=== PATIENT | female | born 1940 | race Caucasian/White ===

== ENCOUNTER 2017-10-24 12:50 | Emergency (ER) | payer OTHER, MEDICAID ==
[~2017-10-24] VITALS: Ht 162.6 cm; Wt 76.0 kg
[~2017-10-24 12:50] MED LIST: ALPR0.25 PO; ATOR20TA42 PO; CARD180C5 PO; CHOL1CAP6 PO; LEVE500 PO; LOPE2TAB3 PO; RIVA20 PO; Z.0.WALKERFRONT
[2017-10-24 13:03] VITALS: BP 141/76; PULSE 97; RESP 20; TEMP 97.8; O2SAT 98
[2017-10-24] MEDS ORDERED: ALEV220T14 PO (13:30)
[2017-10-24] MEDS ORDERED: LEVE500T8 PO (13:30)
[2017-10-24] MEDS ORDERED: MECL-62 PO (13:30)
[2017-10-24] MEDS ORDERED: ATOR40TA16 PO (13:30)
[2017-10-24] MEDS ORDERED: AMLO10TA2 PO (13:30)
[2017-10-24] MEDS ORDERED: XARE20TA PO (13:30)
[2017-10-24] MEDS ORDERED: LORA0.5T PO (13:30)
[2017-10-24] MEDS ORDERED: SUCR1TAB PO (13:30)
--- NOTE | 2017-10-24 14:13 | PD ---
HPI Chief Complaint: Fall Time Seen by Provider: 13:52 Travel History International Travel<30 days: No Contact w/Intl Traveler<30days: No Traveled to known affect area: No History of Present Illness HPI 77-year-old female presents emergency department for evaluation left wrist pain. Patient has history of vertigo. She felt dizzy and went to grab for something when she missed it. She ended up pulling her wrist. She reports left wrist pain, urine nature. It is exacerbated with movement. She did not fall or hit her head. She cannot lose consciousness. No other symptoms to report. PFSH Past Medical History Atrial Fibrillation: Yes Anxiety: Yes Depression: Yes Cancer: No Cardiovascular Problems: Yes High Cholesterol: Yes Chest Pain: Yes Coronary Artery Disease: Yes Diabetes: No Diminished Hearing: No Deep Vein Thrombosis: Yes Endocrine: No Gastrointestinal Disorders: Yes (RECTAL PROLAPSE,ACID REFLUX, GI BLEED, ESOPHAGEAL STRICTURE/DILATION) GERD: Yes Genitourinary: Yes (HX OF UTI) Headaches: Yes Hepatitis: No Hiatal Hernia: No Hypertension: Yes Immune Disorder: No Musculoskeletal: Yes (ARTHRITIS, BACK PROBLEMS) Neurologic: No Psychiatric: Yes (CLAUSTROPHOBIC) Reproductive: No Respiratory: Yes (GETS SOB EASILY, HX OF BRONCHITIS) Myocardial Infarction: Yes Thyroid Disease: No Menopausal: Yes : 8 Para: 7 Miscarriage: 1 Past Surgical History Abdominal Surgery: Yes (CHOLECYSTECTOMY) AICD: No Cholecystectomy: Yes Eye Surgery: Yes (BILL CATARACT SURGERY 2012) Gynecologic Surgery: Yes (HYSTERECTOMY, OOPHORECTOMY) Hysterectomy: Yes Joint Replacement: No Pacemaker: No Other Surgery: Yes Social History Alcohol Use: No Tobacco Use: No Substance Use: No Allergies-Medications (Allergen,Severity, Reaction): Coded Allergies: iodine (Unverified Allergy, Severe, 04/29/17) THROAT CLOSED, COULDN'T BREATHE AFTER IODINATED CONTRAST MEDIA INJECTED potassium iodide (Unverified Allergy, Severe, 04/29/17) THROAT CLOSED, COULDN'T BREATHE AFTER IODINATED CONTRAST MEDIA INJECTED povidone-iodine (Unverified Allergy, Severe, 04/29/17) THROAT CLOSED, COULDN'T BREATHE AFTER IODINATED CONTRAST MEDIA INJECTED sodium iodide (Unverified Allergy, Severe, 04/29/17) THROAT CLOSED, COULDN'T BREATHE AFTER IODINATED CONTRAST MEDIA INJECTED sodium iodide (Unverified Allergy, Severe, 04/29/17) THROAT CLOSED, COULDN'T BREATHE AFTER IODINATED CONTRAST MEDIA INJECTED penicillin G (Unverified Allergy, Intermediate, Hives, 04/29/17) ITCHING, RASH morphine (Unverified Adverse Reaction, Intermediate, Restlessness, 04/29/17 ) Reported Meds & Prescriptions Reported Meds & Active Scripts Active Startex (Hydrocodone-Acetaminophen) 5 Mg-325 Mg Tab 1 Tab PO Q6H PRN Reported Lorazepam 0.5 Mg Tab 0.5 Mg PO Q12HR PRN Levetiracetam 500 Mg Tab 500 Mg PO BID Amlodipine (Amlodipine Besylate) 10 Mg Tab 10 Mg PO DAILY Xarelto (Rivaroxaban) 20 Mg Tab 20 Mg PO DAILY Aleve Arthritis (Naproxen Sodium) 220 Mg Tab 220 Mg PO BID Atorvastatin (Atorvastatin Calcium) 40 Mg Tab 40 Mg PO HS Sucralfate 1 Gram Tab 1 Gm PO TID on empty stomach Meclizine (Meclizine HCl) 25 Mg Tab 50 Mg PO BID PRN Review of Systems Except as stated in HPI: all other systems reviewed are Neg Physical Exam Narrative GENERAL: Well-nourished, well-developed female patient, primarily Vietnamese- speaking but in no acute distress. SKIN: Focused skin assessment warm/dry. HEAD: Normocephalic. EYES: No scleral icterus. No injection or drainage. NECK: Supple, trachea midline. No JVD or lymphadenopathy. CARDIOVASCULAR: Regular rate and rhythm without murmurs, gallops, or rubs. RESPIRATORY: Breath sounds equal bilaterally. No accessory muscle use. EXTREMITY: There is swelling and tenderness of the left distal forearm and wrist. There is no obvious deformity. The skin is intact. Flexion and extension of the fingers is normal. The fingers are warm and well perfused. Sensation to light touch is intact in the hand. BACK: Nontender without obvious deformity. No CVA tenderness. Data Data Last Documented VS Vital Signs Date Time Temp Pulse Resp B/P (MAP) Pulse Ox O2 Delivery O2 Flow Rate FiO2 10/24/17 15:40 75 20 148/84 (105) 99 10/24/17 13:03 97.8 Orders Orders Wrist, Complete ([id number]) (10/24/17 ) Ibuprofen (Motrin) (10/24/17 14:15) Splint Or Brace Apply/Monitor (10/24/17 15:04) Ed Discharge Order (10/24/17 15:04) Cockup Hand Splint (10/24/17 ) MDM Medical Decision Making Medical Screen Exam Complete: Yes Emergency Medical Condition: Yes Medical Record Reviewed: Yes Differential Diagnosis Fracture versus sprain versus dislocation versus contusion Narrative Course 77-year-old female presents to emergency department for evaluation left wrist pain. X-ray imaging confirms no acute bony normality. Patient is placed in a Velcro wrist splint. She is encouraged follow-up with primary care provider and return immediately with any acute worsening symptoms. Diagnosis Primary Impression: Wrist sprain Qualified Codes: S63.502A - Unspecified sprain of left wrist, initial encounter Referrals: Orthopedist Primary Care Physician Patient Instructions: General Instructions, Wrist Sprain (ED) Additional Instructions: Ice and elevate to reduce pain and swelling Brace for support Follow-up with primary care provider Return immediately with any acute worsening symptoms Med/Other Pt SpecificInfo: Prescription(s) given Scripts Hydrocodone-Acetaminophen (Startex) 5 Mg-325 Mg Tab 1 TAB PO Q6H Y for PAIN GREATER THAN 6, #12 TAB 0 Refills Prov: Sera Avery 10/24/17 Disposition: 01 DISCHARGE HOME Condition: Stable Sera Avery Oct 24, 2017 14:13
[2017-10-24] MEDS ORDERED: IBUPROFEN 600 MG TAB PO ONE (14:15)
--- NOTE | 2017-10-24 15:00 | RADRPT ---
EXAM DATE/TIME: 10/24/2017 14:27 [facility] COMPARISON: No previous studies available for comparison. INDICATIONS : Posterior side left wrist pain, after fall MEDICAL HISTORY : Hypertension. Hypercholesterolemia. Gastroesophageal reflux disease. Hearing problems. Confusion. DOROTHY B. Coronary artery disease. Chest pain. DVT. Bronchitis. Esophageal stricture. Rectal prolapse. Arthr itis. Back problems. Depression. SURGICAL HISTORY : Cholecystectomy. Hysterectomy. Bilateral cataract surgery. ENCOUNTER: Initial ACUITY: 1 day PAIN SCORE: 8/10 LOCATION: Left wrist FINDINGS: Three view examination of the left wrist demonstrates no soft tissue swelling, dislocation, or fractu re. The carpal bones are in normal alignment. The joint spaces are maintained. Bony mineralization is normal. CONCLUSION: Negative for fracture or dislocation. Follow up in 7-10 days is suggested if symptoms persist.. Jean Paul Mayfield MD FACR on October 24, 2017 at 14:57 Board Certified Radiologist. This report was verified electronically.
[2017-10-24] MEDS ORDERED: NORC5TAB PO (15:15)
[2017-10-24 15:40] VITALS: BP 148/84
== END 2017-10-24 15:40 | disposition home or self-care (01) ==
LOC: NEDAMB 12:50
DX: S63.502A Unspecified sprain of left wrist, initial encounter (principal); X50.0XXA Overexertion from strenuous movement or load, initial encounter; E78.00 Pure hypercholesterolemia, unspecified; F32.9 Major depressive disorder, single episode, unspecified; F41.9 Anxiety disorder, unspecified; I10 Essential (primary) hypertension; I25.10 Atherosclerotic heart disease of native coronary artery without angina pectoris; I48.91 Unspecified atrial fibrillation; K21.9 Gastro-esophageal reflux disease without esophagitis
CPT/HCPCS: 73110; 99283; L3908

== ENCOUNTER 2017-10-30 15:36 | Emergency (ER) | payer OTHER, MEDICAID ==
[~2017-10-30] VITALS: Ht 152.4 cm; Wt 63.6 kg
[~2017-10-30 15:36] MED LIST changes: +ALEV220T14 PO; -ALPR0.25 PO; +AMLO10TA2 PO; -ATOR20TA42 PO; +ATOR40TA16 PO; -CARD180C5 PO; -CHOL1CAP6 PO; -LEVE500 PO; +LEVE500T8 PO; -LOPE2TAB3 PO; +LORA0.5T PO; +MECL-62 PO; +NORC5TAB PO; -RIVA20 PO; +SUCR1TAB PO; +XARE20TA PO; -Z.0.WALKERFRONT
[2017-10-30 15:58] VITALS: BP 168/79; PULSE 97; RESP 16; TEMP 98.2; O2SAT 99
[2017-10-30] MEDS ORDERED: SODIUM CHLORIDE 0.9% FLUSH 10 ML FLUSH IVF PRN (18:15)
== END 2017-10-30 19:00 | disposition left against medical advice (07) ==
LOC: NETRI 15:36
DX: Z53.21 Procedure and treatment not carried out due to patient leaving prior to being seen by health care provider (principal)
CPT/HCPCS: 99281

== ENCOUNTER 2017-12-08 10:55 | Emergency (ER) | payer OTHER, MEDICAID ==
[~2017-12-08] VITALS: Ht 137.2 cm; Wt 60.0 kg
[2017-12-08 11:07] VITALS: BP 128/72; PULSE 71; RESP 18; TEMP 97.6; O2SAT 98
[2017-12-08 11:55] LABS: AUTOMATED NEUTROPHIL # 8.7 TH/MM3 (1.8-7.7); BASOPHIL % 0.3 % (0.0-2.0); EOSINOPHIL % 0.2 % (0.0-4.0); HEMATOCRIT 42.7 % (35.0-46.0); HEMOGLOBIN 14.3 GM/DL (11.6-15.3); LYMPH % 31.9 % (9.0-44.0); LYMPHOCYTE # 4.5 TH/MM3 (1.0-4.8); MEAN CELL VOLUME 85.3 FL (80.0-100.0); MEAN CORPUSCULAR HEMOGLOBIN 28.6 PG (27.0-34.0); MEAN CORPUSCULAR HGB CONC 33.5 % (32.0-36.0); MEAN PLATELET VOLUME 9.2 FL (7.0-11.0); MONO % 5.8 % (0.0-8.0); MONOCYTE # 0.8 TH/MM3 (0-0.9); NEUT % 61.8 % (16.0-70.0); PLATELET COUNT 406 TH/MM3 (150-450); RED BLOOD COUNT 5.01 MIL/MM3 (4.00-5.30); RED CELL DISTRIBUTION WIDTH 14.4 % (11.6-17.2); WHITE BLOOD COUNT 14.1 TH/MM3 (4.0-11.0)
[2017-12-08 12:16] LABS: ALKALINE PHOSPHATASE 82 U/L (45-117); TOTAL BILIRUBIN ADULT 0.5 MG/DL (0.2-1.0)
[2017-12-08 12:18] LABS: ALT (GPT) 13 U/L (10-53); AST (GOT) 25 U/L (15-37); BICARBONATE 22.9 MEQ/L (21.0-32.0); BLOOD UREA NITROGEN 9 MG/DL (7-18); CALCIUM 9.5 MG/DL (8.5-10.1); CHLORIDE 101 MEQ/L (98-107); GLOMERULAR FILTRATION RATE 44 ML/MIN (>89); GLUCOSE,RANDOM 164 MG/DL (74-106); SODIUM (NA) 139 MEQ/L (136-145)
[2017-12-08 14:05] LABS: BACTERIA, URINE RARE /hpf; BILIRUBIN, URINE NEG (NEG); BLOOD, URINE TRACE (NEG); GLUCOSE,URINE NEG (NEG); KETONE, URINE NEG (NEG); NITRITE,URINE NEG (NEG); PH, URINE 7.5 (5.0-8.5); SQUAMOUS EPITHELIAL CELL URINE 1 /hpf (0-5); URINE COLOR LIGHT-YELLOW (YELLW/STRAW); URINE LEUKOCYTE ESTERASE NEG (NEG)
[2017-12-08] MEDS ORDERED: KLOR10TA PO (14:28)
[2017-12-08] MEDS ORDERED: SERT-132 PO (14:28)
[2017-12-08] MEDS ORDERED: CLON0.5T PO (14:28)
[2017-12-08 14:38] VITALS: BP 118/78; PULSE 93; RESP 17; O2SAT 96
--- NOTE | 2017-12-08 14:39 | PD ---
HPI Chief Complaint: Abdominal Pain Time Seen by Provider: 14:03 Travel History International Travel<30 days: No Contact w/Intl Traveler<30days: No Traveled to known affect area: No History of Present Illness HPI 77-year-old female with PMH of CAD, A. fib, anxiety, HTN presents to the ED for evaluation of accidental hour history of "pressure" in the head accompanied by numbness and tingling of bilateral extremities. Patient states that these symptoms onset shortly after she took a new anxiety medication. She is unsure the name of the medication. She also complains of mildly blurred vision. She denies headache, dizziness, difficulties with speech, unilateral weakness. She also complains of 2-3 month history of loose nonbloody stools. Patient states that she had a MRI of the brain a few weeks ago that was negative. She denies fevers, chills, nausea, chest pain, palpitations, shortness of breath, abdominal pain. No treatment attempted at home. All communication was through [employer] interpretation service. Patient is primarily [place]-speaking. PFSH Past Medical History Hx Anticoagulant Therapy: No Atrial Fibrillation: Yes Anxiety: Yes Depression: Yes Cancer: No Cardiovascular Problems: Yes High Cholesterol: Yes Chest Pain: Yes Coronary Artery Disease: Yes Diabetes: No Diminished Hearing: No Deep Vein Thrombosis: Yes Endocrine: No Gastrointestinal Disorders: Yes (RECTAL PROLAPSE,ACID REFLUX, GI BLEED, ESOPHAGEAL STRICTURE/DILATION) GERD: Yes Genitourinary: Yes (HX OF UTI) Headaches: Yes Hepatitis: No Hiatal Hernia: No Hypertension: Yes Immune Disorder: No Musculoskeletal: Yes (ARTHRITIS, BACK PROBLEMS) Neurologic: No Psychiatric: Yes (CLAUSTROPHOBIC) Reproductive: No Respiratory: Yes (GETS SOB EASILY, HX OF BRONCHITIS) Myocardial Infarction: Yes Thyroid Disease: No Menopausal: Yes : 8 Para: 7 Miscarriage: 1 Past Surgical History Abdominal Surgery: Yes (CHOLECYSTECTOMY) AICD: No Cholecystectomy: Yes Eye Surgery: Yes (BILL CATARACT SURGERY 2012) Gynecologic Surgery: Yes (HYSTERECTOMY, OOPHORECTOMY) Hysterectomy: Yes Joint Replacement: No Pacemaker: No Other Surgery: Yes Social History Alcohol Use: No Tobacco Use: No Substance Use: No Allergies-Medications (Allergen,Severity, Reaction): Coded Allergies: iodine (Unverified Allergy, Severe, 12/08/17) THROAT CLOSED, COULDN'T BREATHE AFTER IODINATED CONTRAST MEDIA INJECTED potassium iodide (Unverified Allergy, Severe, 12/08/17) THROAT CLOSED, COULDN'T BREATHE AFTER IODINATED CONTRAST MEDIA INJECTED povidone-iodine (Unverified Allergy, Severe, 12/08/17) THROAT CLOSED, COULDN'T BREATHE AFTER IODINATED CONTRAST MEDIA INJECTED sodium iodide (Unverified Allergy, Severe, 12/08/17) THROAT CLOSED, COULDN'T BREATHE AFTER IODINATED CONTRAST MEDIA INJECTED sodium iodide (Unverified Allergy, Severe, 12/08/17) THROAT CLOSED, COULDN'T BREATHE AFTER IODINATED CONTRAST MEDIA INJECTED penicillin G (Unverified Allergy, Intermediate, Hives, 12/08/17) ITCHING, RASH morphine (Unverified Adverse Reaction, Intermediate, Restlessness, 12/08/17 ) Reported Meds & Prescriptions Reported Meds & Active Scripts Active Reported Klor-Con 10 (Potassium Chloride) 10 Meq Tab 10 Meq PO DAILY Clonazepam 0.5 Mg Tab 0.5 Mg PO BID Sertraline (Sertraline HCl) 50 Mg Tab 50 Mg PO DAILY Levetiracetam 500 Mg Tab 500 Mg PO BID Amlodipine (Amlodipine Besylate) 10 Mg Tab 10 Mg PO DAILY Xarelto (Rivaroxaban) 20 Mg Tab 20 Mg PO DAILY Aleve Arthritis (Naproxen Sodium) 220 Mg Tab 220 Mg PO BID Atorvastatin (Atorvastatin Calcium) 40 Mg Tab 40 Mg PO HS Sucralfate 1 Gram Tab 1 Gm PO BID on empty stomach Meclizine (Meclizine HCl) 25 Mg Tab 50 Mg PO BID PRN Review of Systems Except as stated in HPI: all other systems reviewed are Neg Physical Exam Narrative GENERAL: Well-nourished, well-developed petite female in no acute distress. SKIN: Focused skin assessment warm/dry. HEAD: Normocephalic. Atraumatic. EYES: No scleral icterus. No injection or drainage. PERRLA. EOMI. NECK: Supple, trachea midline. No JVD or lymphadenopathy. CARDIOVASCULAR: Regular rate and rhythm without murmurs, gallops, or rubs. RESPIRATORY: Breath sounds clear and equal bilaterally. No accessory muscle use. GASTROINTESTINAL: Abdomen soft, non-tender, nondistended. Active bowel sounds. MUSCULOSKELETAL: No cyanosis, or edema. Moves extremities spontaneously. NEUROLOGICAL: Awake and alert. Cranial nerves II through XII intact. Motor and sensory grossly within normal limits. Five out of 5 muscle strength in all muscle groups. Normal speech. BACK: Nontender without obvious deformity. No CVA tenderness. Data Data Last Documented VS Vital Signs Date Time Temp Pulse Resp B/P (MAP) Pulse Ox O2 Delivery O2 Flow Rate FiO2 12/08/17 17:11 12/08/17 14:38 93 17 96 Room Air 12/08/17 11:07 97.6 Orders Orders Complete Blood Count With Diff (12/08/17 11:13) Comprehensive Metabolic Panel (12/08/17 11:13) Urinalysis - C+S If Indicated (12/08/17 11:13) Iv Access Insert/Monitor (12/08/17 11:13) Oximetry (12/08/17 11:13) Lipase (12/08/17 11:13) Ct Brain W/O Iv Contrast(Rout) (12/08/17 ) Ed Discharge Order (12/08/17 16:29) Labs Laboratory Tests Test 12/08/17 11:20 12/08/17 13:06 White Blood Count 14.1 TH/MM3 Red Blood Count 5.01 MIL/MM3 Hemoglobin 14.3 GM/DL Hematocrit 42.7 % Mean Corpuscular Volume 85.3 FL Mean Corpuscular Hemoglobin 28.6 PG Mean Corpuscular Hemoglobin Concent 33.5 % Red Cell Distribution Width 14.4 % Platelet Count 406 TH/MM3 Mean Platelet Volume 9.2 FL Neutrophils (%) (Auto) 61.8 % Lymphocytes (%) (Auto) 31.9 % Monocytes (%) (Auto) 5.8 % Eosinophils (%) (Auto) 0.2 % Basophils (%) (Auto) 0.3 % Neutrophils # (Auto) 8.7 TH/MM3 Lymphocytes # (Auto) 4.5 TH/MM3 Monocytes # (Auto) 0.8 TH/MM3 Eosinophils # (Auto) 0.0 TH/MM3 Basophils # (Auto) 0.0 TH/MM3 CBC Comment DIFF FINAL Differential Comment Blood Urea Nitrogen 9 MG/DL Creatinine 1.20 MG/DL Random Glucose 164 MG/DL Total Protein 8.0 GM/DL Albumin 3.0 GM/DL Calcium Level 9.5 MG/DL Alkaline Phosphatase 82 U/L Aspartate Amino Transf (AST/SGOT) 25 U/L Alanine Aminotransferase (ALT/SGPT) 13 U/L Total Bilirubin 0.5 MG/DL Sodium Level 139 MEQ/L Potassium Level 3.5 MEQ/L Chloride Level 101 MEQ/L Carbon Dioxide Level 22.9 MEQ/L Anion Gap 15 MEQ/L Estimat Glomerular Filtration Rate 44 ML/MIN Lipase 45 U/L Urine Color LIGHT-YELLOW Urine Turbidity CLEAR Urine pH 7.5 Urine Specific [place] 1.006 Urine Protein TRACE mg/dL Urine Glucose (UA) NEG mg/dL Urine Ketones NEG mg/dL Urine Occult Blood TRACE Urine Nitrite NEG Urine Bilirubin NEG Urine Urobilinogen LESS THAN 2.0 MG/DL Urine Leukocyte Esterase NEG Urine RBC 1 /hpf Urine WBC 1 /hpf Urine Squamous Epithelial Cells 1 /hpf Urine Bacteria RARE /hpf Microscopic Urinalysis Comment CULT NOT INDICATED MDM Medical Decision Making Medical Screen Exam Complete: Yes Emergency Medical Condition: Yes Differential Diagnosis Medication side effect versus less likely ICH versus metabolic derangement versus dehydration versus UTI versus other Narrative Course 77-year-old female with PMH of CAD, A. fib, anxiety, HTN presents to the ED for evaluation of accidental hour history of "pressure" in the head accompanied by blurred vision, numbness and tingling of bilateral extremities. Patient states that these symptoms onset shortly after she took an unknown anxiety medication this AM. Patient states that she had a MRI of the brain a few weeks ago that was negative. She also complains of 2-3 month history of loose nonbloody stools. Vitals reviewed. Patient afebrile, BP 128 of 72 on presentation. On exam this is a petite female in no acute distress. No focal neuro deficits. Abdominal exam completely benign. CBC: WBC 14.1. Hemoglobin 14.3. CMP: BUN 9, creatinine 1.20. Glucose 164. Lipase 45. UA: No culture indicated. CT brain: Negative noncontrast CT per radiology read. On recheck the patient reports improvement of her symptoms. Discussed the results of the workup with the patient. She was reassured by this. She states that she has a appointment with the pharmacy associate tomorrow morning and a follow-up with the neurologist in 2 weeks. She is instructed to discontinue taking the antianxiety medication until discussing further with her physician. She indicated understanding of instructions. She is stable and discharged home. All communication through [employer] interpretation service. Patient is primarily [place]-speaking. Diagnosis Primary Impression: Medication side effect Additional Impression: Chronic diarrhea Referrals: Neurologist Primary Care Physician Additional Instructions: Rest, hydrate. Stop taking the medication that caused the effects you complain of today. Follow up with the primary care provider for evaluation of chronic diarrhea. Follow up with the neurologist for problems with medications. Return to the ED for worsening symptoms or any urgent or emergent medical condition. Disposition: 01 DISCHARGE HOME Condition: Stable Mell Forbes Dec 08, 2017 14:39
--- NOTE | 2017-12-08 16:18 | RADRPT ---
EXAM DATE/TIME: 12/08/2017 16:06 [facility] COMPARISON: CT BRAIN W/O CONTRAST, April 10, 2016, 12:52. INDICATIONS : Patient complains of headache. RADIATION DOSE: 56.35 CTDIvol (mGy) MEDICAL HISTORY : Cardiovascular disease. Hypertension. SURGICAL HISTORY : None. ENCOUNTER: Initial ACUITY: 1 day PAIN SCALE: 4/10 LOCATION: cranial TECHNIQUE: Multiple contiguous axial images were obtained of the head. Using automated exposure control and adj ustment of the mA and/or kV according to patient size, radiation dose was kept as low as reasonably a chievable to obtain optimal diagnostic quality images. DICOM format image data is available electro nically for review and comparison. FINDINGS: CEREBRUM: The ventricles are normal for age. No evidence of midline shift, mass lesion, hemorrhage or acute in farction. No extra-axial fluid collections are seen. POSTERIOR FOSSA: The cerebellum and brainstem are intact. The 4th ventricle is midline. The cerebellopontine angle i s unremarkable. EXTRACRANIAL: The visualized portion of the orbits is intact. SKULL: The calvaria is intact. No evidence of skull fracture. CONCLUSION: Negative noncontrast CT Benjamin Baig MD on December 08, 2017 at 16:14 Board Certified Radiologist. This report was verified electronically.
== END 2017-12-08 17:11 | disposition home or self-care (01) ==
LOC: NEPE 10:55
DX: K52.9 Noninfective gastroenteritis and colitis, unspecified (principal); R20.0 Anesthesia of skin; H53.8 Other visual disturbances; E78.00 Pure hypercholesterolemia, unspecified; I10 Essential (primary) hypertension; I25.10 Atherosclerotic heart disease of native coronary artery without angina pectoris; I48.91 Unspecified atrial fibrillation; F41.9 Anxiety disorder, unspecified; Z79.01 Long term (current) use of anticoagulants
CPT/HCPCS: 70450; 80053; 81001; 83690; 85025; 99284